=== PATIENT | female | born 1945 | race Caucasian/White ===

== ENCOUNTER 2016-07-05 09:13 | Day surgery (SDC) | payer MEDICARE, OTHER ==
[~2016-07-05] VITALS: Ht 167.6 cm; Wt 72.6 kg
[~2016-07-05 09:13] MED LIST: CYMBALTA60 MG PO; ELIQUIS5 MG PO; GLUCOSAMINE &1 EAC1 PO; KLONOPIN0.5 MG PO; MULTIVITAMINS1 EAC1 PO; NEURONTIN300 MG PO; OMNICEF300 MG PO; PRAVACHOL80 MG PO; PREDNISONE20 MG PO; PROTONIX40 MG PO; SYNTHROID100 MCG PO; TELMISARTAN-HC1 EAC1 PO; VITAMIN D31000 UNIT PO
== END 2016-07-05 13:10 | disposition short-term general hospital (02) ==
LOC: SURGOP
PROC: 08RK3JZ Replacement of Left Lens with Synthetic Substitute, Percutaneous Approach (ICD-10-PCS; principal; 2016-07-05)
DX: Z96.1 Presence of intraocular lens (principal); H26.9 Unspecified cataract; I10 Essential (primary) hypertension; I95.1 Orthostatic hypotension; G47.30 Sleep apnea, unspecified; E78.5 Hyperlipidemia, unspecified; F32.9 Major depressive disorder, single episode, unspecified; G25.81 Restless legs syndrome; Z88.8 Allergy status to other drugs, medicaments and biological substances; Z79.01 Long term (current) use of anticoagulants; Z79.899 Other long term (current) drug therapy; Z99.89 Dependence on other enabling machines and devices; Z90.49 Acquired absence of other specified parts of digestive tract; Z98.51 Tubal ligation status; Z98.890 Other specified postprocedural states
CPT/HCPCS: J0171; J3473; V2632

== ENCOUNTER 2016-08-02 10:40 | Day surgery (SDC) | payer MEDICARE, OTHER | END 2016-08-02 15:30 | disposition short-term general hospital (02) | LOC: SURGOP 10:40 | PROC: 08RJ3JZ Replacement of Right Lens with Synthetic Substitute, Percutaneous Approach (ICD-10-PCS; principal; 2016-08-02) | DX: Z96.1 Presence of intraocular lens (principal); H26.9 Unspecified cataract; I10 Essential (primary) hypertension; E78.5 Hyperlipidemia, unspecified; G47.30 Sleep apnea, unspecified; K21.9 Gastro-esophageal reflux disease without esophagitis; F32.9 Major depressive disorder, single episode, unspecified; M19.90 Unspecified osteoarthritis, unspecified site; G25.81 Restless legs syndrome; I26.99 Other pulmonary embolism without acute cor pulmonale; Z88.8 Allergy status to other drugs, medicaments and biological substances; Z99.89 Dependence on other enabling machines and devices; Z79.01 Long term (current) use of anticoagulants; Z79.899 Other long term (current) drug therapy; Z98.42 Cataract extraction status, left eye; Z98.51 Tubal ligation status; Z98.890 Other specified postprocedural states | CPT/HCPCS: J0171; J3473; V2632 ==

== ENCOUNTER 2016-09-27 16:52 | Emergency (ER) | payer OTHER | END 2016-09-27 17:55 | disposition short-term general hospital (02) | LOC: ER 16:52 | DX: S16.1XXA Strain of muscle, fascia and tendon at neck level, initial encounter (principal); M47.892 Other spondylosis, cervical region; E78.00 Pure hypercholesterolemia, unspecified; Z79.01 Long term (current) use of anticoagulants; Z79.899 Other long term (current) drug therapy; Z86.2 Personal history of diseases of the blood and blood-forming organs and certain disorders involving the immune mechanism; V49.40XA Driver injured in collision with unspecified motor vehicles in traffic accident, initial encounter ==